=== PATIENT | male | born 1970 | race Caucasian/White ===

== ENCOUNTER 2020-02-20 15:20 | Emergency (ER) | payer MEDICARE, OTHER ==
[~2020-02-20] VITALS: Ht 175.3 cm; Wt 97.5 kg
[~2020-02-20 15:20] MED LIST: ATIVAN0.5 MG PO; CYMBALTA30 MG PO; FLEXERIL10 MG PO; IBUPROFEN200 M1 PO; KEPPRA500 MG PO; NORCO 5-325 TA1 EACH PO; PERCOCET 5-3251 EACH PO; PREDNISONE5 MG PO; ROBAXIN500 MG PO
--- NOTE | 2020-02-21 16:30 | EKG ---
[facility] [address] [facility] [place], [place] [address] Signed Normal sinus rhythm Inferior-posterior infarct , age undetermined Abnormal ECG When compared with ECG of 20-FEB-2020 15:28, (Unconfirmed) QT has shortened Confirmed by DEYSI MONTERROSO DO ([id number]) on 02/21/2020 4:30:41 PM Electronically Signed By: DEYSI MONTERRSOO DO 02/21/20 1630 PATIENT NAME: ADYAGUSTÍN LEILA Electrocardiogram DATE OF : 66 PHYSICIAN: DEYSI MONTERROSO DO REPORT #: [id number] REPORT IS CONFIDENTIAL AND NOT TO BE RELEASED WITHOUT AUTHORIZATION
--- NOTE | 2020-02-21 16:30 | EKG ---
[facility] [address] [facility] [place] [address] Signed Normal sinus rhythm Right atrial enlargement RSR' or QR pattern in V1 suggests right ventricular conduction delay Minimal voltage criteria for LVH, may be normal variant Nonspecific ST abnormality Prolonged QT Abnormal ECG No previous ECGs available Confirmed by DEYSI MONTERROSO DO ([id number]) on 02/21/2020 4:30:35 PM Electronically Signed By: DEYSI MONTERROSO DO 02/21/20 1630 PATIENT NAME: AGUSTÍN GARSIA Electrocardiogram DATE OF : 66 PHYSICIAN: DEYSI MONTERROSO DO REPORT #: [id number] REPORT IS CONFIDENTIAL AND NOT TO BE RELEASED WITHOUT AUTHORIZATION
== END 2020-02-20 20:53 | disposition home or self-care (01) ==
LOC: ED 15:20
DX: R07.9 Chest pain, unspecified (principal); R55 Syncope and collapse; Z88.5 Allergy status to narcotic agent
CPT/HCPCS: 71045; 71275; 80053; 83735; 84484; 85025; 85379; 93005; 93010; 99285-25; C9803; Q9967

== ENCOUNTER 2023-06-30 17:05 | Emergency (ER) | payer MEDICARE ==
[~2023-06-30] VITALS: Ht 175.3 cm; Wt 111.6 kg
[~2023-06-30 17:05] MED LIST changes: +AMOX TR-K CLV1 EAC1 PO
[2023-06-30] MEDS ORDERED: SUMATRIPTAN SU100 MG PO (17:12)
[2023-06-30 17:26] LABS: BASOPHILS 0.8 % (0-2); EOSINOPHILS 1.4 % (0-6); HEMATOCRIT 43.9 % (35.0-50.0); HEMOGLOBIN 14.7 g/dL (12.0-18.0); LYMPHOCYTES 31.8 % (24-44); MCH 28.8 (27-36); MCHC 33.4 g/dl (30-36); MCV 86.2 fl (81-99); MONOCYTES 13.3 % (0-12); NEUTROPHILS 52.7 % (39-80); PLATELET COUNT 317 K/uL (140-440); RBC 5.09 M/ul (4.3-5.7); RDW 14.1 (10.5-15.0)
[2023-06-30 17:50] LABS: ALBUMIN 4.1 g/dL (3.4-5.0); ALBUMIN/GLOBULIN RATIO 1.24 (1.1-2.4); ANION GAP 14.9 (7-21); BILIRUBIN, TOTAL 0.4 ng/dL (0.2-1.0); CALCIUM 8.8 mg/dL (8.5-10.1); CREATININE, SERUM 0.9 mg/dL (0.70-1.30); POTASSIUM 3.9 mmol/L (3.5-5.1); PROTEIN, TOTAL 7.4 g/dL (6.4-8.2)
[2023-06-30 19:18] VITALS: BP 139/78
--- NOTE | 2023-07-01 21:14 | EKG ---
[facility] [address] [facility] [place], [place] [address] Signed Normal sinus rhythm Right bundle branch block Abnormal ECG No previous ECGs available Confirmed by NONA ZEPEDA MD ([id number] on 07/01/2023 9:14:36 PM Electronically Signed By: NONA ZEPEDA 07/01/232113 PATIENT NAME: AGUSTÍN GARSIA Electrocardiogram DATE OF : 66 PHYSICIAN: NONA ZEPEDA REPORT #: [id number] REPORT IS CONFIDENTIAL AND NOT TO BE RELEASED WITHOUT AUTHORIZATION
--- NOTE | 2023-07-01 21:15 | EKG ---
[facility] [address] [facility] [place], [place] [address] Signed Normal sinus rhythm Right bundle branch block Abnormal ECG When compared with ECG of 30-JUN-2023 17:06, (Unconfirmed) No significant change was found Confirmed by NONA ZEPEDA MD ([id number]) on 07/01/2023 9:14:48 PM Electronically Signed By: NONA ZEPEDA 07/01/232114 PATIENT NAME: AGUSTÍN GARSIA LEILA Electrocardiogram DATE OF : 66 PHYSICIAN: NONA ZEPEDA REPORT #: [id number] REPORT IS CONFIDENTIAL AND NOT TO BE RELEASED WITHOUT AUTHORIZATION
== END 2023-06-30 19:19 | disposition home or self-care (01) ==
LOC: ED 17:05
PROVIDERS: Emergency Medicine
DX: R07.89 Other chest pain (principal); Z88.5 Allergy status to narcotic agent
CPT/HCPCS: 36415; 71045; 80053; 83735; 84484; 85025; 93005; 93010; 99285-25; A9270